=== PATIENT | male | born 2000 | race Caucasian/White ===

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

== ENCOUNTER 2022-03-13 21:19 | Inpatient (IN) | payer OTHER ==
[2022-03-13 21:35] VITALS: RESP 18
[2022-03-13 23:48] LABS: Amphetamine Screen,Urine Not Detected (NotDetected); Barbiturate Screen,Urine Not Detected (NotDetected); Benzodiazepines Screen,Urine Not Detected (NotDetected); Cocaine Screen,Urine Not Detected (NotDetected); Methadone Screen, Urine Not Detected (NotDetected); Opiate Screen,Urine Not Detected (NotDetected); Oxycodone Screen, Urine Not Detected (NotDetected); Phencyclidine Screen,Urine Not Detected (NotDetected); Tricyclic Antidepressant,Urine Not Detected (NotDetected); Urn Cannabinoid Scrn Not Detected (NotDetected)
--- NOTE | 2022-03-14 00:17 | ED ---
Psych HPI - General Source: patient Mode of arrival: ambulatory <Pete Osman - Last Filed: 03/14/22 00:13> <Parminder Marques - Last Filed: 03/14/22 03:36> - General Chief Complaint: Psychiatric Symptoms Stated Complaint: psych evaluation Time Seen by Provider: 03/13/22 22:32 - History of Present Illness Initial Comments: This 21-year-old male presents with father with the complaint of some depression and agitation. He apparently does have a history of depression and bipolar disorder. He initially was not taking any medications but then saw his primary care about a month ago and was placed on Zoloft. This has not seemed to help whatsoever. He went through a breakup with his girlfriend who is his baby's mother. This apparently caused him some mental anguish as well. Father states that he has very significant and frequent agitation and depression. Father feels as though patient requires inpatient psychiatric treatment and is petitioning him for further care. The patient is denying any current medical complaints. He denies any alcohol or drug abuse. No other complaints or modifying factors. (Pete Osman) - Related Data Home Medications Medication Instructions Recorded Confirmed Lisdexamfetamine Dimesylate 50 mg PO DAILY 01/22/15 12/19/16 [Vyvanse] risperiDONE [RisperDAL] 0.5 mg PO DAILY 01/22/15 12/19/16 Allergies Allergy/AdvReac Type Severity Reaction Status Date / Time No Known Allergies Allergy Verified 03/13/22 21:36 Review of Systems ROS Other: All systems not noted in ROS Statement are negative. <Pete Osman - Last Filed: 03/14/22 00:13> ROS Other: All systems not noted in ROS Statement are negative. <Parminder Marques - Last Filed: 03/14/22 03:36> ROS Statement: Those systems with pertinent positive or pertinent negative responses have been documented in the HPI. Past Medical History Past Medical History: No Reported History History of Any Multi-Drug Resistant Organisms: None Reported Past Surgical History: Adenoidectomy, Ear Surgery, Tonsillectomy Past Psychological History: ADD/ADHD, Bipolar Smoking Status: Never smoker Past Alcohol Use History: None Reported Past Drug Use History: None Reported <Pete Osman - Last Filed: 03/14/22 00:13> General Exam Limitations: no limitations <Pete Osman J - Last Filed: 03/14/22 00:13> - General Exam Comments Initial Comments: GENERAL: The patient is well nourished and well hydrated. VITAL SIGNS: Heart rate, blood pressure, respiratory rate reviewed as recorded in nurse's notes. EYES: Pupils are round and reactive. Extraocular movements are intact. No conjunctival / lid redness or swelling. ENT: No external evidence of injury, swelling, or ecchymosis. Airway is patent. Throat is clear. NECK: Nontender. No swelling or evidence of injury. No subcutaneous emphysema. Trachea is midline. No thyroid mass. HEART: Regular rate and rhythm. Good peripheral pulses. LUNGS/CHEST: Breath sounds clear and equal bilaterally. No rales, rhonchi, or wheezes. No ecchymosis, subcutaneous emphysema, or tenderness. ABDOMEN: Abdomen soft without tenderness. No palpable masses or organomegaly. No peritoneal signs. No abdominal wall swelling or ecchymosis. EXTREMITIES: No extremity tenderness. Normal muscle tone and function. No thoracolumbar tenderness. NEUROLOGIC: Sensation is grossly intact. Cranial nerve exam reveals face is symmetrical, tongue is midline, speech is clear. SKIN: No abrasions or ecchymosis is noted. No induration or masses noted. PSYCHIATRIC: Alert and oriented. Appears agitated at times. (Pete Osman) Course Vital Signs 03/13/22 21:32 Temperature 98.5 F Pulse Rate 74 Respiratory 18 Rate Blood Pressure 159/108 O2 Sat by Pulse 98 Oximetry Medical Decision Making <Pete Osman - Last Filed: 03/14/22 00:13> <Parminder Marques - Last Filed: 03/14/22 03:36> - Medical Decision Making The patient was seen and examined. Urine drug screen is negative. Breath alcohol test is ordered. It is felt as though he is agitated and apparently is depressed and suicidal ideations. It is felt as though he would benefit from further mental health evaluation. Petition is completed by father. Certification is completed by myself. The patient does have bipolar disorder, it is not felt as though the Zoloft as sole therapy would necessarily be beneficial in treating his condition. It is felt as though he may benefit from further evaluation by the psychiatric team. Patient is medically cleared for further psychiatric evaluation. (Pete Osman) 21 male seen and evaluated by psychiatry patient will be admitted for psychiatric evaluation and treatment (Parminder Marques) - Lab Data Lab Results 03/13/22 Range/Units 23:20 Urine Opiates Screen Not Detected (NotDetected) Ur Oxycodone Screen Not Detected (NotDetected) Urine Methadone Screen Not Detected (NotDetected) Ur Propoxyphene Screen Not Detected (NotDetected) Ur Barbiturates Screen Not Detected (NotDetected) U Tricyclic Antidepress Not Detected (NotDetected) Ur Phencyclidine Scrn Not Detected (NotDetected) Ur Amphetamines Screen Not Detected (NotDetected) U Methamphetamines Scrn Not Detected (NotDetected) U Benzodiazepines Scrn Not Detected (NotDetected) Urine Cocaine Screen Not Detected (NotDetected) U Marijuana (THC) Screen Not Detected (NotDetected) Disposition <Pete Osman - Last Filed: 03/14/22 00:13> Is patient prescribed a controlled substance at d/c from ED?: No <Parminder Marques - Last Filed: 03/14/22 03:36> Clinical Impression: Depression, Suicidal ideation, Bipolar disorder, Agitated Disposition: TRANSFER TO PSYCH HOSP/UNIT Condition: Fair Referrals: Amber Matute PAC [Primary Care Provider] - 1-2 days
[2022-03-14] MEDS ORDERED: ACETAMINOPHEN TAB 325 MG TAB PO PRN (05:57)
[2022-03-14] MEDS ORDERED: MAG HYDROX/AL HYDROX/SIMETH 30 ML CUP PO PRN (05:57)
[2022-03-14] MEDS ORDERED: MAGNESIUM HYDROXIDE 2,400 MG/10 ML CUP PO PRN (05:57)
[2022-03-14] MEDS ORDERED: HALOPERIDOL LACTATE 5 MG/ML 1 ML VIAL IM PRN (05:57)
[2022-03-14] MEDS ORDERED: LORazepam 1 MG TAB PO PRN (05:57)
[2022-03-14] MEDS ORDERED: LORazepam 2 MG/ML INJ IM PRN (05:59)
[2022-03-14] MEDS ORDERED: haloperidoL 5 MG TAB PO PRN (06:00)
[2022-03-14 06:34] LABS: Amorphous Sediment,Urine Few /hpf; Appearance,Urine Turbid (Clear); Bilirubin,Urine Negative (Negative); Blood,Urine Negative (Negative); Calcium Oxalate Crystals,Urine Few /hpf; Color,Urine Yellow; Glucose,Urine (UA) Negative (Negative); Ketones,Urine Negative (Negative); Leukocyte Esterase,Urine Moderate (Negative); Mucus,Urine Many /hpf; Nitrite,Urine Negative (Negative); PH, Urine 6.5 (5.0-8.0); Protein,Urine Trace (Negative); Specific Gravity,Urine 1.025 (1.001-1.035); Squamous Epithelial Cell,Urine 2 /hpf (0-4); WBC,Urine 22 /hpf (0-5)
--- NOTE | 2022-03-14 13:54 | P.HP ---
Psychiatric H&P - . H&P Date: 03/14/22 History & Physical: Allergies Allergy/AdvReac Type Severity Reaction Status Date / Time No Known Allergies Allergy Verified 03/14/22 08:59 Vital Signs Temp 97.5 F L 03/14/22 09:44 Pulse 97 03/14/22 09:44 Resp 18 03/14/22 09:44 BP 142/74 03/14/22 09:44 Pulse Ox 97 03/14/22 09:44 FiO2 Intake & Output 03/13/22 03/14/22 03/14/22 18:59 06:59 18:59 Weight 130.181 kg 127.4 kg Laboratory Last Values Urine Color Yellow 03/13/22 23:20 Urine Appearance Turbid (Clear) 03/13/22 23:20 Urine pH 6.5 (5.0-8.0) 03/13/22 23:20 Ur Specific [place] 1.025 (1.001-1.035) 03/13/22 23:20 Urine Protein Trace (Negative) H 03/13/22 23:20 Urine Glucose (UA) Negative (Negative) 03/13/22 23:20 Urine Ketones Negative (Negative) 03/13/22 23:20 Urine Blood Negative (Negative) 03/13/22 23:20 Urine Nitrite Negative (Negative) 03/13/22 23:20 Urine Bilirubin Negative (Negative) 03/13/22 23:20 Urine Urobilinogen 2.0 mg/dL (<2.0) 03/13/22 23:20 Ur Leukocyte Esterase Moderate (Negative) H 03/13/22 23:20 Urine WBC 22 /hpf (0-5) H 03/13/22 23:20 Ur Squamous Epith Cells 2 /hpf (0-4) 03/13/22 23:20 Calcium Oxalate Crystal Few /hpf (None) H 03/13/22 23:20 Amorphous Sediment Few /hpf (None) H 03/13/22 23:20 Urine Mucus Many /hpf (None) H 03/13/22 23:20 Urine Opiates Screen Not Detected (NotDetected) 03/13/22 23:20 Ur Oxycodone Screen Not Detected (NotDetected) 03/13/22 23:20 Urine Methadone Screen Not Detected (NotDetected) 03/13/22 23:20 Ur Propoxyphene Screen Not Detected (NotDetected) 03/13/22 23:20 Ur Barbiturates Screen Not Detected (NotDetected) 03/13/22 23:20 U Tricyclic Antidepress Not Detected (NotDetected) 03/13/22 23:20 Ur Phencyclidine Scrn Not Detected (NotDetected) 03/13/22 23:20 Ur Amphetamines Screen Not Detected (NotDetected) 03/13/22 23:20 U Methamphetamines Scrn Not Detected (NotDetected) 03/13/22 23:20 U Benzodiazepines Scrn Not Detected (NotDetected) 03/13/22 23:20 Urine Cocaine Screen Not Detected (NotDetected) 03/13/22 23:20 U Marijuana (THC) Screen Not Detected (NotDetected) 03/13/22 23:20 Coronavirus (PCR) Not Detected (Not Detectd) 03/14/22 04:04 03/14/22 13:54 IDENTIFYING DATA: Patient is a single, employed, 21-year-old male with a reported history of bipolar disorder who presents to the hospital on a petition and certification for suicidal ideation with a plan to shoot himself. HPI: Patient presented to the hospital on 03/14/2022, brought into the emergency department under petition by his father. The patient reportedly informed his father that he was going to kill himself and put a bullet right in his head. He reported that he did not want to live anymore. Furthermore, the patient has reportedly had increased anger. The patient was subsequently admitted onto the psychiatric unit. The patient signed himself voluntarily onto the psychiatric unit. Upon evaluation, the patient reports that he has been increasingly stressed over the past 3 weeks. He reports that he has been arguing with his ex-girlfriend a lot over how much time he is able to spend with his son as well as his ability to help around the house. The patient and his ex-girlfriend broke up 3 weeks ago. They have a 3-month-old baby boy together. He states that he has been working 6 twelve hour shifts per week. He states that he has been increasingly exhausted and unable to help around the house when he gets home. He reports that he has been feeling increasingly angry, especially at himself. The patient does endorse significant symptoms of depression including increased guilt, poor sleep, increasing isolation, and some anhedonia. He does admit to the suicidal threats however. He states that he would never want to kill himself. He reports a strong desire to live for his family, especially his son. He is reports that his firearms are currently locked up in a safe and are taken care of by his father. In regards other mood symptoms, the patient does report that he has been previously diagnosed bipolar disorder. However as side from a history of anger, the patient reports no significant symptoms of bipolar disorder. He denies any periods of excessive energy, racing thoughts, mood lability, or increased goal- directed activity. The patient denies any auditory or visual hallucinations. He reports no paranoia or other delusions. PAST PSYCHIATRIC HISTORY: Patient states that he has intrusive diagnosed bipolar disorder. The patient has trialed Zoloft and Vyvanse in the past. Patient d enies any previous psychiatric hospitalizations. Patient denies any psychiatric outpatient follow-up. Patient denies any history of suicide attempts in the past. PMH: Past Medical History: No Reported History History of Any Multi-Drug Resistant Organisms: None Reported Past Surgical History: Adenoidectomy, Ear Surgery, Tonsillectomy Past Psychological History: ADD/ADHD, Bipolar Smoking Status: Never smoker Past Alcohol Use History: None Reported Past Drug Use History: None Reported ALLERGIES: NO KNOWN DRUG ALLERGIES CHEMICAL DEPENDENCY HISTORY: Patient denies any tobacco, alcohol, marijuana, or illicit drug use. FAMILY PSYCHIATRIC/SUBSTANCE USE HISTORY: No reported family psychiatric history. SOCIAL HISTORY: Patient was born in [place], [place] and raised in [place], [place]. He is single and recently broke up with his girlfriend of 1-1/2 years approximately 3 weeks ago. After 3-month-old son together named Alexis. He currently lives alone. He reports that his mother and father are still together and that he has 3 siblings. He reports that his significant support from his family. 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 He graduated high school. He reports no legal history, service, or rastafari affiliation. MENTAL STATUS EXAM: General Appearance: Patient appears to be stated age is alert, directable, and attempts to cooperate. Patient appears to have fair hygiene and grooming. Behavior: Patient is seated without any agitated behavior. Eye contact is appropriate. Speech: Patient's speech is fluent and nonpressured. Mood/Affect: Patient reports their mood is "angry at myself," affect is congruent and constricted. Suicidality/Homicidality: Patient is currently denying any suicidal or homicidal ideation. Perceptions: Patient denies any visual hallucinations and denies any auditory hallucinations Though content/process: There is no evidence of any delusional thought content and thought process is linear and goal-directed. Memory and concentration: AOX3, grossly intact for the purposes of this session. Can spell "WORLD" backwards Judgment and insight: Fair STRENGTHS/WEAKNESSES: Strength is that the patient is future oriented and has significant family support. Weakness is that the patient has poor coping skills. INTELLECT: average IMPRESSIONS: Major depressive disorder Rule out adjustment disorder with mixed disturbance of emotion and conduct PLAN: -Patient is admitted under involuntary status however converted to adult formal voluntary, to MHU for stabilization of psychiatric symptoms and safety. Patient signed adult voluntary form and medication consent and is placed in patient's chart. -Medications : Will start patient on We will increase Zoloft to 100 mg by mouth at bedtime for depression/anxiety Start Trazodone 100 mg by mouth at bedtime for insomnia -Ativan and Haldol PRN for agitation/aggression -Patient was informed of the risks, benefits and side effects of the medication and patient verbally consented to taking the medications. Patient signed med consent form and was placed in chart. -Internal Medicine consult to perform medical evaluation and physical. -SW on board for discharge planning. Encourage patient to participate in groups to work on coping skills. 03/14/22 13:54
[2022-03-14] MEDS: traZODone HCL 100 MG TAB PO SCH (20:42)
[2022-03-14] MEDS ORDERED: SERTRALINE 100 MG TAB PO SCH (21:00)
[2022-03-15 10:08] LABS: ALT 31 U/L (4-49); AST 29 U/L (17-59); African American GFR (CKD) >90 (>60 ml/min/1.73 sqM); Albumin 4.9 g/dL (3.5-5.0); Alkaline Phosphatase 54 U/L (38-126); Anion Gap 15 mmol/L; Bilirubin, Delta 0.2 mg/dL (0.0-0.2); Bilirubin,Unconjugated 0.7 mg/dL (0.0-1.1); Blood Urea Nitrogen 14 mg/dL (9-20); Carbon Dioxide 24 mmol/L (22-30); Chloride 101 mmol/L (98-107); Glucose 132 mg/dL (74-99); Non-African American GFR(CKD) >90 (>60 ml/min/1.73 sqM); Potassium 4.3 mmol/L (3.5-5.1); Sodium 140 mmol/L (137-145); Total Bilirubin 0.9 mg/dL (0.2-1.3); Total Protein 7.3 g/dL (6.3-8.2)
[2022-03-15 10:14] LABS: Basophils % (A) 0 %; Eosinophils # (A) 0.1 k/uL (0-0.7); Eosinophils % (A) 1 %; HGB 16.6 gm/dL (13.0-17.5); Lymphocytes # (A) 1.5 k/uL (1.0-4.8); Lymphocytes % (A) 26 %; MCH 28.5 pg (25.0-35.0); MCHC 33.2 g/dL (31.0-37.0); MCV 85.8 fL (80.0-100.0); Monocytes # (A) 0.3 k/uL (0-1.0); Monocytes % (A) 6 %; Neutrophils # (A) 3.7 k/uL (1.3-7.7); Neutrophils % (A) 65 %; Platelet Count 158 k/uL (150-450); RBC 5.83 m/uL (4.30-5.90); RDW 12.9 % (11.5-15.5); WBC 5.7 k/uL (3.8-10.6)
--- NOTE | 2022-03-15 11:26 | P.PN ---
Progress Note - Text Progress Note Date: 03/15/22 Interval History: Patient was seen wandering the hallways and was directable and agreeable to speak with development writer in the office. Currently, the patient was that he is feeling significantly better. He reports that he was able to sleep well last night and has been thinking about seeing his child and taking some time off work. He is currently not reporting any suicidal or homicidal ideation, intention, and/or plan. He is not reporting any auditory or visual hallucinations. He denies any paranoia or other delusions. The patient has been attending groups. He has been adherent with his medication and is not reporting any significant side effects at this time. Mental Status Exam: General Appearance: Patient appears to be stated age is alert, directable, and cooperative. Wearing glasses. Behavior: Patient is calmly seated without any agitated behavior. Eye contact is appropriate. Speech: Patient's speech is fluent and nonpressured. Mood/Affect: Mood is improving mildly, affect is congruent and constricted. Suicidality/Homicidality: Patient denies having any suicidal or homicidal ideation intent or plan. Perceptions: Patient denies any visual hallucinations and denies any auditory hallucinations Though content/process: There is no evidence of any delusional thought content and thought process is linear and goal-directed. Memory and concentration: AOX3, grossly intact for the purposes of this session Judgment and insight: Improving mildly Vital Signs Temp 97.5 F L 03/14/22 09:44 Pulse 97 03/14/22 09:44 Resp 18 03/14/22 09:44 BP 142/74 03/14/22 09:44 Pulse Ox 97 03/14/22 09:44 FiO2 Intake & Output 03/14/22 03/15/22 03/15/22 18:59 06:59 18:59 Weight 127.4 kg Laboratory Results - Last 24 Hours 03/15/22 03/15/22 09:11 09:11 WBC 5.7 RBC 5.83 Hgb 16.6 Hct 50.0 MCV 85.8 MCH 28.5 MCHC 33.2 RDW 12.9 Plt Count 158 MPV 9.0 Neutrophils % 65 Lymphocytes % 26 Monocytes % 6 Eosinophils % 1 Basophils % 0 Neutrophils # 3.7 Lymphocytes # 1.5 Monocytes # 0.3 Eosinophils # 0.1 Basophils # 0.0 Sodium 140 Potassium 4.3 Chloride 101 Carbon Dioxide 24 Anion Gap 15 BUN 14 Creatinine 0.82 Est GFR (CKD-EPI)AfAm >90 Est GFR (CKD-EPI)NonAf >90 Glucose 132 H Calcium 10.0 Total Bilirubin 0.9 Conjugated Bilirubin 0.0 Unconjugated Bilirubin 0.7 Delta Bilirubin 0.2 AST 29 ALT 31 Alkaline Phosphatase 54 Total Protein 7.3 Albumin 4.9 TSH 0.956 Assessment Major depressive disorder Rule out adjustment disorder with mixed disturbance of emotion and conduct Plan: -Patient continues to meet criteria for inpatient psychiatric admission for symptom stabilization and safety. Patient has signed adult voluntary form and medication consent and was placed in patient's chart. -Medications: Increase Zoloft to 150 mg by mouth at bedtime for depression/anxiety Continue trazodone 100 mg by mouth at bedtime for insomnia -When necessary Ativan and Haldol for agitation/aggression. -SW on board for discharge planning. Encouraged the patient to participate in milieu.
[2022-03-15 12:37] VITALS: BP 138/92; PULSE 89; TEMP 97.6
--- NOTE | 2022-03-15 18:46 | P.MDCNMH ---
History of Present Illness H&P Date: 03/15/22 Chief Complaint: Anxiety Patient is a 21-year-old male who was admitted to inpatient psych due to suicide ideations with a plan to shoot himself. Patient seen and examined. He denies any suicidal ideations at this time he denies any nausea no vomiting no fevers no chills no depression and anxiety symptoms at this time. Dates that he wants to go home Review of Systems Full 12 point complete review system connective pertinent positives and neg atives noted in HPI Past Medical History Past Medical History: No Reported History History of Any Multi-Drug Resistant Organisms: None Reported Past Surgical History: Adenoidectomy, Ear Surgery, Tonsillectomy Past Psychological History: ADD/ADHD, Bipolar Smoking Status: Never smoker Past Alcohol Use History: None Reported Past Drug Use History: None Reported Medications and Allergies Home Medications Medication Instructions Recorded Confirmed Type Sertraline [Zoloft] 100 mg PO DAILY 03/14/22 03/14/22 History Allergies Allergy/AdvReac Type Severity Reaction Status Date / Time No Known Allergies Allergy Verified 03/14/22 08:59 Physical Exam Osteopathic Statement: *. No significant issues noted on an osteopathic structural exam other than those noted in the History and Physical/Consult. Vitals: Vital Signs Temp Pulse Resp BP Pulse Ox 03/15/22 11:00 97.6 F 89 18 138/92 98 Gen.: Alert and oriented 3 without acute distress HEENT: Pupils equal round reactive to light and accommodation extraocular muscles intact normocephalic atraumatic Heart: Regular rate and rhythm normal S1-S2 Lungs: Clear to auscultation bilateral Abdomen: Soft nontender non-distended Extremities: No lower extremity edema noted Skin: Warm dry and intact Cranial Nerve Examination - Cranial Nerves Cranial Nerve I- Olfactory: Intact Cranial Nerve II- Optic: Intact Cranial Nerve III- Oculomotor: Intact Cranial Nerve IV- Trochlear: Intact Cranial Nerve V- Trigeminal: Intact Cranial Nerve - Abducens: Intact Cranial Nerve VII- Facial: Intact Cranial Nerve VIII- Auditory: Intact Cranial Nerve IX- Glossopharyngeal: Intact Cranial Nerve X- Vagus: Intact Cranial Nerve XI- Accessory: Intact Cranial Nerve XII- Hypoglossal: Intact Results CBC & Chem 7: 03/15/22 09:11 03/15/22 09:11 Labs: Abnormal Lab Results - Last 24 Hours (Table) 03/15/22 Range/Units 09:11 Glucose 132 H (74-99) mg/dL Assessment and Plan (1) Bipolar disorder Current Visit: Yes Status: Acute Code(s): F31.9 - BIPOLAR DISORDER, UNSPECIFIED SNOMED Code(s): 76998066 Plan: Obesity -Patient has a BMI of 41.5 -Diet education given -Labs reviewed Bipolar Anxiety disorder -Management per psychiatric facility team
[2022-03-15] MEDS ORDERED: SERTRALINE 100 MG TAB PO SCH (21:00)
[2022-03-15] MEDS: traZODone HCL 100 MG TAB PO SCH (21:08)
[2022-03-15 22:55] LABS: Chol/HDL Ratio 2.86 Ratio; LDL Cholesterol,Calculated 46.6 mg/dL (0.0-131.0); VLDL Calculation 16.54 mg/dL (5.00-40.00)
[2022-03-16] MEDS ORDERED: fentaNYL (PF) 50 MCG/ML 2 ML AMP ONE (09:00)
--- NOTE | 2022-03-16 14:01 | P.DS ---
Providers Date of admission: 03/14/22 09:44 Expected date of discharge: 03/16/22 Attending physician: Serge Thorpe MD Consults: 03/14/22 05:57 Consult Physician Routine Consulting Provider: Jeimy Eric Consult Reason/Comments: For H & P for Medical Follow Up Do you want consulting provider notified?: Yes Primary care physician: Amber Matute - Discharge Diagnosis(es) (1) Major depressive disorder Status: Acute Priority: High Hospital Course: Admission HPI: Patient is a single, employed, 21-year-old male with a reported history of bipolar disorder who presents to the hospital on a petition and certification for suicidal ideation with a plan to shoot himself. Patient presented to the hospital on 03/14/2022, brought into the emergency department under petition by his father. The patient reportedly informed his father that he was going to kill himself and put a bullet right in his head. He reported that he did not want to live anymore. Furthermore, the patient has reportedly had increased anger. The patient was subsequently admitted onto the psychiatric unit. The patient signed himself voluntarily onto the psychiatric unit. Upon evaluation, the patient reports that he has been increasingly stressed over the past 3 weeks. He reports that he has been arguing with his ex-girlfriend a lot over how much time he is able to spend with his son as well as his ability to help around the house. The patient and his ex-girlfriend broke up 3 weeks ago. They have a 3-month-old baby boy together. He states that he has been working 6 twelve hour shifts per week. He states that he has been increasingly exhausted and unable to help around the house when he gets home. He reports that he has been feeling increasingly angry, especially at himself. The patient does endorse significant symptoms of depression including increased guilt, poor sleep, increasing isolation, and some anhedonia. He does admit to the suicidal threats however. He states that he would never want to kill himself. He reports a strong desire to live for his family, especially his son. He is reports that his firearms are currently locked up in a safe and are taken care of by his father. In regards other mood symptoms, the patient does report that he has been previously diagnosed bipolar disorder. However as side from a history of anger, the patient reports no significant symptoms of bipolar disorder. He denies any periods of excessive energy, racing thoughts, mood lability, or increased goal- directed activity. The patient denies any auditory or visual hallucinations. He reports no paranoia or other delusions. Patient states that he has intrusive diagnosed bipolar disorder. The patient has trialed Zoloft and Vyvanse in the past. Patient denies any previous psychiatric hospitalizations. Patient denies any psychiatric outpatient follow- up. Patient denies any history of suicide attempts in the past. Hospital course: Upon admission to the unit patient was initially presenting as depressed, irritable, and suicidal. Patient was however directable and agreeable to commence treatment. Patient got along well with other patients on the unit and followed unit protocol. Patient was compliant with the medications and denied any side effects throughout hospital course. Patient was started on Zoloft and trazodone for management of depression, anxiety, and insomnia. Patient spoke of his stressors and engaged in therapy both group and individual. Patient was also seen by medical team for history and physical exam. Throughout the course of the hospitalization patient gradually improved with regards to his mood and sleep and became future oriented with improved insight and judgment. On the day of discharge patient denied any suicidal or homicidal ideations intent or plan denied any auditory or visual hallucinations. Patient endorsed wanting to live for his health and family. The patient denied any access to guns or weapons. Patient denied any paranoia and did not endorse any delusions. Patient does not have a significant history of substance abuse however was counseled on abstaining from all substances including alcohol and marijuana. Patient was also counseled on the medications and need for regular compliance and was e ncouraged to follow-up with their outpatient appointment for mental health and also for primary care. Prior to discharge a family meeting will be arranged by adoption social worker to answer any questions and ensure safety upon discharge. Mental status exam: General Appearance: Patient appears to be stated age is alert, pleasant, and cooperative. Patient is in no acute distress and has fair hygiene and grooming Behavior: Patient is calmly seated without any agitated behavior. Speech: Patient's speech is fluent and nonpressured. Mood/Affect: Patient reports their mood is "much better", affect is congruent and euthymic to bright. Suicidality/Homicidality: Patient denies having any suicidal or homicidal ideation intent or plan. Perceptions: Patient denies any auditory or visual hallucinations. Though content/process: There is no evidence of any delusional thought content and thought process is linear and goal-directed. Patient is future oriented. Memory and concentration: AOX3, grossly intact for the purposes of this session. Can spell "WORLD" backwards correctly. Judgment and insight: Improved Impression: Major depressive disorder Plan: -Continue with discharge today as patient has improved and stabilized psychiatrically and is not currently an imminent threat to himself and/or others. She has numerous protective factors including a supportive family, future orientation, and duty to his children. -Continue medications: Zoloft 150 mg by mouth at bedtime for depression/anxiety Trazodone 100 mg by mouth at bedtime for insomnia -Patient was counseled on the need for medication compliance and appropriate follow-up at mental health and also primary care for medical issues. Patient verbalized understanding and agreed. -Social work to arrange for and conduct family meeting to ensure safety upon discharge and answer any questions/concerns. Social work also to arrange for patients follow up appointments for psychiatric care along with follow up with primary care provider. -Patient counseled on abstaining from recreational drugs and marijuana and alcohol. Was informed/educated on the adverse effects on their physical and mental health. Patient verbally agreed and understood. -Patient was instructed to return to the hospital or seek immediate medical care if their psychiatric or medical symptoms do worsen or reoccur. -Psychoeducation and supportive therapy provided to patient. Risks and benefits of pharmacological treatment versus the risks and benefits of nontreatment weight and discussed. Informed consent discussion held. Common side effects of psychotropics discussed such as, but not limited to headache, GI disturbance, sexual dysfunction, movement disorders, sedation, and orthostatic hypotension. Life threatening and blackbox warnings of prescribed medications also discussed. Potential risks of operating a vehicle or heavy machinery discussed with patient at length. Advised on importance of compliance and a reliable and responsible manner. Patient advised to review FDA consumer labeling of all medications prior to taking. Patient verbalized understanding of potential risks, and agrees with current treatment plan. Patient advised to medically contact physician/emergency personnel if any acute changes in condition occur. Vital Signs Temp 97.6 F 03/15/22 11:00 Pulse 89 03/15/22 11:00 Resp 18 03/15/22 11:00 BP 138/92 03/15/22 11:00 Pulse Ox 98 03/15/22 11:00 FiO2 Laboratory Results WBC 5.7 k/uL (3.8-10.6) 03/15/22 09:11 RBC 5.83 m/uL (4.30-5.90) 03/15/22 09:11 Hgb 16.6 gm/dL (13.0-17.5) 03/15/22 09:11 Hct 50.0 % (39.0-53.0) 03/15/22 09:11 MCV 85.8 fL (80.0-100.0) 03/15/22 09:11 MCH 28.5 pg (25.0-35.0) 03/15/22 09:11 MCHC 33.2 g/dL (31.0-37.0) 03/15/22 09:11 RDW 12.9 % (11.5-15.5) 03/15/22 09:11 Plt Count 158 k/uL (150-450) 03/15/22 09:11 MPV 9.0 03/15/22 09:11 Neutrophils % 65 % 03/15/22 09:11 Lymphocytes % 26 % 03/15/22 09:11 Monocytes % 6 % 03/15/22 09:11 Eosinophils % 1 % 03/15/22 09:11 Basophils % 0 % 03/15/22 09:11 Neutrophils # 3.7 k/uL (1.3-7.7) 03/15/22 09:11 Lymphocytes # 1.5 k/uL (1.0-4.8) 03/15/22 09:11 Monocytes # 0.3 k/uL (0-1.0) 03/15/22 09:11 Eosinophils # 0.1 k/uL (0-0.7) 03/15/22 09:11 Basophils # 0.0 k/uL (0-0.2) 03/15/22 09:11 Sodium 140 mmol/L (137-145) 03/15/22 09:11 Potassium 4.3 mmol/L (3.5-5.1) 03/15/22 09:11 Chloride 101 mmol/L (98-107) 03/15/22 09:11 Carbon Dioxide 24 mmol/L (22-30) 03/15/22 09:11 Anion Gap 15 mmol/L 03/15/22 09:11 BUN 14 mg/dL (9-20) 03/15/22 09:11 Creatinine 0.82 mg/dL (0.66-1.25) 03/15/22 09:11 Est GFR (CKD-EPI)AfAm >90 (>60 ml/min/1.73 sqM) 03/15/22 09:11 Est GFR (CKD-EPI)NonAf >90 (>60 ml/min/1.73 sqM) 03/15/22 09:11 Glucose 132 mg/dL (74-99) H 03/15/22 09:[address] Glu mg/dL 121 03/15/22 09:11 Hemoglobin A1c 5.9 % (0.0-6.0) 03/15/22 09:11 Calcium 10.0 mg/dL (8.4-10.2) 03/15/22 09:11 Total Bilirubin 0.9 mg/dL (0.2-1.3) 03/15/22 09:11 Conjugated Bilirubin 0.0 mg/dL (0.0-0.3) 03/15/22 09:11 Unconjugated Bilirubin 0.7 mg/dL (0.0-1.1) 03/15/22 09:11 Delta Bilirubin 0.2 mg/dL (0.0-0.2) 03/15/22 09:11 AST 29 U/L (17-59) 03/15/22 09:11 ALT 31 U/L (4-49) 03/15/22 09:11 Alkaline Phosphatase 54 U/L (38-126) 03/15/22 09:11 Total Protein 7.3 g/dL (6.3-8.2) 03/15/22 09:11 Albumin 4.9 g/dL (3.5-5.0) 03/15/22 09:11 Triglycerides 82.70 mg/dL (0.00-149.00) 03/15/22 09:11 Cholesterol 97.00 mg/dL (0.00-200.00) 03/15/22 09:11 LDL Cholesterol, Calc 46.6 mg/dL (0.0-131.0) 03/15/22 09:11 VLDL Cholesterol, Calc 16.54 mg/dL (5.00-40.00) 03/15/22 09:11 HDL Cholesterol 34.00 mg/dL (40.00-60.00) L 03/15/22 09:11 Cholesterol/HDL Ratio 2.86 Ratio 03/15/22 09:11 TSH 0.956 mIU/L (0.465-4.680) 03/15/22 09:11 Urine Color Yellow 03/13/22 23:20 Urine Appearance Turbid (Clear) 03/13/22 23:20 Urine pH 6.5 (5.0-8.0) 03/13/22 23:20 Ur Specific [place] 1.025 (1.001-1.035) 03/13/22 23:20 Urine Protein Trace (Negative) H 03/13/22 23:20 Urine Glucose (UA) Negative (Negative) 03/13/22 23:20 Urine Ketones Negative (Negative) 03/13/22 23:20 Urine Blood Negative (Negative) 03/13/22 23:20 Urine Nitrite Negative (Negative) 03/13/22 23:20 Urine Bilirubin Negative (Negative) 03/13/22 23:20 Urine Urobilinogen 2.0 mg/dL (<2.0) 03/13/22 23:20 Ur Leukocyte Esterase Moderate (Negative) H 03/13/22 23:20 Urine WBC 22 /hpf (0-5) H 03/13/22 23:20 Ur Squamous Epith Cells 2 /hpf (0-4) 03/13/22 23:20 Calcium Oxalate Crystal Few /hpf (None) H 03/13/22 23:20 Amorphous Sediment Few /hpf (None) H 03/13/22 23:20 Urine Mucus Many /hpf (None) H 03/13/22 23:20 Urine Opiates Screen Not Detected (NotDetected) 03/13/22 23:20 Ur Oxycodone Screen Not Detected (NotDetected) 03/13/22 23:20 Urine Methadone Screen Not Detected (NotDetected) 03/13/22 23:20 Ur Propoxyphene Screen Not Detected (NotDetected) 03/13/22 23:20 Ur Barbiturates Screen Not Detected (NotDetected) 03/13/22 23:20 U Tricyclic Antidepress Not Detected (NotDetected) 03/13/22 23:20 Ur Phencyclidine Scrn Not Detected (NotDetected) 03/13/22 23:20 Ur Amphetamines Screen Not Detected (NotDetected) 03/13/22 23:20 U Methamphetamines Scrn Not Detected (NotDetected) 03/13/22 23:20 U Benzodiazepines Scrn Not Detected (NotDetected) 03/13/22 23:20 Urine Cocaine Screen Not Detected (NotDetected) 03/13/22 23:20 U Marijuana (THC) Screen Not Detected (NotDetected) 03/13/22 23:20 Coronavirus (PCR) Not Detected (Not Detectd) 03/14/22 04:04 Allergies Allergy/AdvReac Type Severity Reaction Status Date / Time No Known Allergies Allergy Verified 03/14/22 08:59 Patient Condition at Discharge: Stable Plan - Discharge Summary Discharge Rx Participant: No New Discharge Prescriptions: New traZODone HCL [Desyrel] 100 mg PO HS 30 Days tab Sertraline [Zoloft] 150 mg PO HS 30 Days tab Discontinued Sertraline [Zoloft] 100 mg PO DAILY Discharge Medication List Sertraline [Zoloft] 150 mg PO HS 30 Days tab 03/16/22 [Rx] traZODone HCL [Desyrel] 100 mg PO HS 30 Days tab 03/16/22 [Rx] Follow up Appointment(s)/Referral(s): [facility] [Outside] - 03/21/22 1:00 pm (with Rossy) Amber Matute PAC [Primary Care Provider] - 1-2 days Patient Instructions/Handouts: Depression (DC) Activity/Diet/Wound Care/Special Instructions: Avoid the use of street drugs and alcohol. Take all prescriptions as prescribed. When you are in need of refills on your medications, please contact your medical provider and/or outpatient psychiatrist to have this done. Please go to scheduled outpatient appointment for aftercare treatment. If symptoms return or become worse, call the crisis line at and/or go to the nearest emergency room for evaluation. Discharge Disposition: HOME SELF-CARE
== END 2022-03-16 12:13 | disposition home or self-care (01) | DRG 885 ==
LOC: EC 21:19 → 3MHU 03-14 05:46 → UNDOADMIN 03-14 05:46 → 3MHU 03-14 09:44
PROVIDERS: ADMIT Psychiatry & Neurology Psychiatry; ATTEND Psychiatry & Neurology Psychiatry
DX: F31.9 Bipolar disorder, unspecified (principal); R45.851 Suicidal ideations; Z68.41 Body mass index [BMI] 40.0-44.9, adult; F41.9 Anxiety disorder, unspecified; F90.9 Attention-deficit hyperactivity disorder, unspecified type; G47.00 Insomnia, unspecified; Z79.899 Other long term (current) drug therapy; E66.9 Obesity, unspecified; Z20.822 Contact with and (suspected) exposure to COVID-19
CPT/HCPCS: 80053; 80061; 80306; 81001; 82075; 82248; 83036; 84443; 85025; 87635; 99285

== ENCOUNTER 2024-07-27 16:25 | Emergency (ER) | payer BC ==
[2024-07-27 17:02] LABS: Glucose,Whole Blood 128 mg/dL (70-110)
--- NOTE | 2024-07-27 17:25 | ED ---
Dizziness HPI - General Chief Complaint: Syncope Stated Complaint: passed out, vomiting Time Seen by Provider: 07/27/24 17:04 Source: patient Mode of arrival: ambulatory Limitations: no limitations - History of Present Illness Initial Comments: 23-year-old male presenting with chief complaint of near syncopal episode. States that when he woke up today generally did not feel well. Later on he was on his way to a restaurant when he felt nauseous and had 1 episode of vomiting. While at the restaurant he states that he felt very sweaty and felt like he was starting to pass out, states that his vision went dark. He was given orange juice and within a matter of seconds felt significantly better. No history of diabetes. No chest pain or difficulty breathing. No abdominal pain. Mild headache. - Related Data Previous Rx's Medication Instructions Recorded Sertraline [Zoloft] 150 mg PO HS 30 Days tab 03/16/22 traZODone HCL [Desyrel] 100 mg PO HS 30 Days tab 03/16/22 Allergies Allergy/AdvReac Type Severity Reaction Status Date / Time No Known Allergies Allergy Verified 07/27/24 16:53 Review of Systems ROS Statement: Those systems with pertinent positive or pertinent negative responses have been documented in the HPI. ROS Other: All systems not noted in ROS Statement are negative. Past Medical History Past Medical History: No Reported History History of Any Multi-Drug Resistant Organisms: None Reported Past Surgical History: Adenoidectomy, Ear Surgery, Tonsillectomy Past Psychological History: ADD/ADHD, Bipolar Smoking Status: Never smoker Past Alcohol Use History: None Reported Past Drug Use History: None Reported General Exam Limitations: no limitations General appearance: alert, in no apparent distress Head exam: Present: atraumatic, normocephalic, normal inspection Eye exam: Present: normal appearance, EOMI Neck exam: Present: normal inspection. Absent: meningismus Respiratory exam: Present: normal lung sounds bilaterally. Absent: respiratory distress, wheezes, rales, rhonchi, stridor Cardiovascular Exam: Present: normal rhythm, tachycardia, normal heart sounds. Absent: systolic murmur, diastolic murmur, rubs, gallop, clicks GI/Abdominal exam: Present: soft. Absent: distended, tenderness, guarding, rebound, rigid Neurological exam: Present: alert, oriented X3 Expanded Patient oriented to: Present: person, place, time Speech: Present: fluid speech Eye Response: (4) open spontaneously Motor Response: (6) obeys commands Verbal Response: (5) oriented Robb Total: 15 Psychiatric exam: Present: normal affect, normal mood Skin exam: Present: warm, dry Course Vital Signs 07/27/24 07/27/24 07/27/24 16:53 17:44 19:29 Temperature 97.8 F 99.0 F 98.9 F Pulse Rate 116 H 94 101 H Respiratory 20 21 20 Rate Blood Pressure 142/89 146/84 143/87 O2 Sat by Pulse 98 97 98 Oximetry Medical Decision Making - Medical Decision Making Was pt. sent in by a medical professional or institution (, PA, SECOND GRADE TEACHER, urgent care, hospital, or [facility]...) When possible be specific @ -[No] Did you speak to anyone other than the patient for history (EMS, parent, family, police, friend...)? What history was obtained from this source @ -[No] Did you review nursing and triage notes (agree or disagree)? Why? @ -[I reviewed and agree with nursing and triage notes] Were old charts reviewed (outside hosp., previous admission, EMS record, old EKG, old radiological studies, urgent care reports/EKG's, [facility] records)? Report findings @ -[No old charts were reviewed] Differential Diagnosis (chest pain, altered mental status, abdominal pain women, abdominal pain men, vaginal bleeding, weakness, fever, dyspnea, syncope, headache, dizziness, GI bleed, back pain, seizure, CVA, palpatations, mental health, musculoskeletal)? @ -MDM Differential Syncope: Valvular disease, hypertrophic cardiomyopathy, pulmonary embolism, tamponade, tachycardia, bradycardia, NH, hypovolemia, hemorrhage, dissection, anemia, intracranial hemorrhage, seizure, hypoglycemia, carbon monoxide poisoning this is not meant to be an all-inclusive list. EKG interpreted by me (3pts min.). @ -EKG shows sinus tachycardia ventricular rate 106. TX interval 156. QRS 96. QT 304. QTc 366. X-rays interpreted by me (1pt min.). @ -Chest x-ray shows no acute process CT interpreted by me (1pt min.). @ -[None done] U/S interpreted by me (1pt. min.). @ -[None done] What testing was considered but not performed or refused? (CT, X-rays, U/S, labs)? Why? @ -[None] What meds were considered but not given or refused? Why? @ -[None] Did you discuss the management of the patient with other professionals (professionals i.e. , PA, SECOND GRADE TEACHER, lab, RT, psych nurse, social services specialist, van driver, teacher, appeals officer, bilingual case manager)? Give summary @ -[No] Was smoking cessation discussed for >3mins.? @ -[No] Was critical care preformed (if so, how long)? @ -[No] Were there social determinants of health that impacted care today? How? (H omelessness, low income, unemployed, alcoholism, drug addiction, transportation, low edu. Level, literacy, decrease access to med. care, alf, rehab)? @ -[No] Was there de-escalation of care discussed even if they declined (Discuss DNR or withdrawal of care, Hospice)? DNR status @ -[No] What co-morbidities impacted this encounter? (DM, HTN, Smoking, COPD, CAD, Cancer, CVA, ARF, Chemo, Hep., AIDS, mental health diagnosis, sleep apnea, morbid obesity)? @ -[None] Was patient admitted / discharged? Hospital course, mention meds given and route, prescriptions, significant lab abnormalities, going to OR and other pertinent info. @ -23-year-old male presenting with chief complaint of near syncopal episode. Patient states this happened while at a restaurant this evening, the patient had not had anything to eat prior to that today. He was given some orange juice and symptoms significantly improved. History and physical examination are conducted. Heart and lungs are clear to auscultation. No leukocytosis. Elevated RBCs and hemoglobin. Negative troponin. EKG shows sinus tachycardia. Chest x-ray shows no acute process. Negative for COVID, influenza, RSV. Patient was able to walk to the x-ray room and back without any issue. On reassessment his symptoms have improved. He is educated on today's findings. He is instructed to find a PCP and follow-up, suggestions provided. Follow-up with PCP. Report back to ER with any new or worsening symptoms. Discussed return parameters and answered all questions. Patient conveyed verbal understanding and agreed to the plan. I discussed this case in detail with my attending Dr. Sampson Undiagnosed new problem with uncertain prognosis? @ -[No] Drug Therapy requiring intensive monitoring for toxicity (Heparin, Nitro, Insulin, Cardizem)? @ -[No] Were any procedures done? @ -[No] Diagnosis/symptom? @ -Near syncopal episode Acute, or Chronic, or Acute on Chronic? @ -Acute Uncomplicated (without systemic symptoms) or Complicated (systemic symptoms)? @ -Complicated Side effects of treatment? @ -[No] Exacerbation, Progression, or Severe Exacerbation? @ -[No] Poses a threat to life or bodily function? How? (Chest pain, USA, NH, pneumonia, PE, COPD, DKA, ARF, appy, cholecystitis, CVA, Diverticulitis, Homicidal, Suicidal, threat to staff... and all critical care pts) @ -Low likelihood - Lab Data Result diagrams: 07/27/24 17:43 07/27/24 18:34 Lab Results 07/27/24 07/27/24 07/27/24 Range/Units 17:01 17:43 17:43 WBC 9.0 (3.8-10.6) k/uL RBC 6.27 H (4.30-5.90) m/uL Hgb 17.6 H (13.0-17.5) gm/dL Hct 52.9 (39.0-53.0) % MCV 84.3 (80.0-100.0) fL MCH 28.0 (25.0-35.0) pg MCHC 33.2 (31.0-37.0) g/dL RDW 13.0 (11.5-15.5) % Plt Count 135 L (150-450) k/uL MPV 11.0 Neutrophils % 89 % Lymphocytes % 5 % Monocytes % 4 % Eosinophils % 2 % Basophils % 0 % Neutrophils # 7.9 H (1.3-7.7) k/uL Lymphocytes # 0.4 L (1.0-4.8) k/uL Monocytes # 0.4 (0-1.0) k/uL Eosinophils # 0.2 (0-0.7) k/uL Basophils # 0.0 (0-0.2) k/uL PT 11.7 (10.0-12.5) sec INR 1.1 (<1.2) APTT 21.1 L (22.0-30.0) sec Sodium (137-145) mmol/L Potassium (3.5-5.1) mmol/L Chloride (98-107) mmol/L Carbon Dioxide (22-30) mmol/L Anion Gap mmol/L BUN (9-20) mg/dL Creatinine (0.66-1.25) mg/dL Est GFR (CKD-EPI)AfAm (>60 ml/min/1.73 sqM) Est GFR (CKD-EPI)NonAf (>60 ml/min/1.73 sqM) Glucose (74-99) mg/dL POC Glucose (mg/dL) 128 H (70-110) mg/dL POC Glu Executive Services Administrator ID Mg [place] Calcium (8.4-10.2) mg/dL Magnesium (1.6-2.3) mg/dL Total Bilirubin (0.2-1.3) mg/dL AST (17-59) U/L ALT (4-49) U/L Alkaline Phosphatase (38-126) U/L Troponin I (0.000-0.034) ng/mL Total Protein (6.3-8.2) g/dL Albumin (3.5-5.0) g/dL Influenza Type A (PCR) (Not Detectd) Influenza Type B (PCR) (Not Detectd) RSV (PCR) (Not Detectd) SARS-CoV-2 (PCR) (Not Detectd) 07/27/24 07/27/24 07/27/24 Range/Units 17:43 18:34 18:34 WBC (3.8-10.6) k/uL RBC (4.30-5.90) m/uL Hgb (13.0-17.5) gm/dL Hct (39.0-53.0) % MCV (80.0-100.0) fL MCH (25.0-35.0) pg MCHC (31.0-37.0) g/dL RDW (11.5-15.5) % Plt Count (150-450) k/uL MPV Neutrophils % % Lymphocytes % % Monocytes % % Eosinophils % % Basophils % % Neutrophils # (1.3-7.7) k/uL Lymphocytes # (1.0-4.8) k/uL Monocytes # (0-1.0) k/uL Eosinophils # (0-0.7) k/uL Basophils # (0-0.2) k/uL PT (10.0-12.5) sec INR (<1.2) APTT (22.0-30.0) sec Sodium 139 (137-145) mmol/L Potassium 4.5 (3.5-5.1) mmol/L Chloride 100 (98-107) mmol/L Carbon Dioxide 27 (22-30) mmol/L Anion Gap 12 mmol/L BUN 17 (9-20) mg/dL Creatinine 0.77 (0.66-1.25) mg/dL Est GFR (CKD-EPI)AfAm >90 (>60 ml/min/1.73 sqM) Est GFR (CKD-EPI)NonAf >90 (>60 ml/min/1.73 sqM) Glucose 114 H (74-99) mg/dL POC Glucose (mg/dL) (70-110) mg/dL POC Glu Executive Services Administrator ID Calcium 10.1 (8.4-10.2) mg/dL Magnesium 1.9 (1.6-2.3) mg/dL Total Bilirubin 1.2 (0.2-1.3) mg/dL AST 23 (17-59) U/L ALT 33 (4-49) U/L Alkaline Phosphatase 49 (38-126) U/L Troponin I <0.012 (0.000-0.034) ng/mL Total Protein 7.8 (6.3-8.2) g/dL Albumin 5.1 H (3.5-5.0) g/dL Influenza Type A (PCR) Not Detected (Not Detectd) Influenza Type B (PCR) Not Detected (Not Detectd) RSV (PCR) Not Detected (Not Detectd) SARS-CoV-2 (PCR) Not Detected (Not Detectd) Disposition Clinical Impression: Near syncope Disposition: HOME SELF-CARE Condition: Good Instructions (If sedation given, give patient instructions): Non-diabetic Hypoglycemia (ED), Near Syncope (ED) Additional Instructions: Follow-up with PCP. Report back to ER with any new or worsening symptoms. Is patient prescribed a controlled substance at d/c from ED?: No Referrals: None,Stated [Primary Care Provider] - 1-2 days Rory Dee MD [REFERRING] - 1-2 days Forms: PH Area PCPs Time of Disposition: 19:26
[2024-07-27 17:57] LABS: Basophils % (A) 0 %; Eosinophils # (A) 0.2 k/uL (0-0.7); Eosinophils % (A) 2 %; HCT 52.9 % (39.0-53.0); HGB 17.6 gm/dL (13.0-17.5); Lymphocytes # (A) 0.4 k/uL (1.0-4.8); Lymphocytes % (A) 5 %; MCHC 33.2 g/dL (31.0-37.0); MCV 84.3 fL (80.0-100.0); Monocytes # (A) 0.4 k/uL (0-1.0); Monocytes % (A) 4 %; Neutrophils # (A) 7.9 k/uL (1.3-7.7); Neutrophils % (A) 89 %; Platelet Count 135 k/uL (150-450); RBC 6.27 m/uL (4.30-5.90)
[2024-07-27] MEDS: SODIUM CHLORIDE 0.9% 1,000 ML IV STA (18:19)
--- NOTE | 2024-07-27 18:23 | XR ---
EXAMINATION TYPE: XR chest 2V DATE OF EXAM: 07/27/2024 6:06 PM COMPARISON: None. CLINICAL INDICATION: Male, 23 years old with history of syncope, TECHNIQUE: XR chest 2V view(s) obtained. FINDINGS: The heart size is normal. The pulmonary vasculature is normal. The lungs are clear. IMPRESSION: 1. No acute pulmonary process. [facility], , 07/27/2024 6:20 PM
[2024-07-27 18:41] LABS: INR 1.1 (<1.2); Partial Thromboplastin Time 21.1 sec (22.0-30.0); Prothrombin Time 11.7 sec (10.0-12.5)
[2024-07-27 19:09] LABS: ALT 33 U/L (4-49); AST 23 U/L (17-59); African American GFR (CKD) >90 (>60 ml/min/1.73 sqM); Albumin 5.1 g/dL (3.5-5.0); Alkaline Phosphatase 49 U/L (38-126); Anion Gap 12 mmol/L; Blood Urea Nitrogen 17 mg/dL (9-20); Calcium 10.1 mg/dL (8.4-10.2); Carbon Dioxide 27 mmol/L (22-30); Chloride 100 mmol/L (98-107); Glucose 114 mg/dL (74-99); Magnesium 1.9 mg/dL (1.6-2.3); Non-African American GFR(CKD) >90 (>60 ml/min/1.73 sqM); Potassium 4.5 mmol/L (3.5-5.1); Sodium 139 mmol/L (137-145); Total Bilirubin 1.2 mg/dL (0.2-1.3); Total Protein 7.8 g/dL (6.3-8.2)
[2024-07-27 19:42] VITALS: BP 143/87; PULSE 101; RESP 20; TEMP 98.9
== END 2024-07-27 19:43 | disposition home or self-care (01) ==
LOC: EC 16:25
DX: R55 Syncope and collapse (principal); Z11.52 Encounter for screening for COVID-19
CPT/HCPCS: 36415; 71046; 80053; 83735; 84484; 85025; 85610; 85730; 87636; 93005; 96360; 99284